=== PATIENT | female | born 1955 | race Caucasian/White ===

== ENCOUNTER → 2017-05-09 | Outpatient (CLI) | payer OTHER ==
--- NOTE | ~2017-05-09 | EKG ---
[address] [place] [address] ELECTROCARDIOGRAM REPORT Name: JASMINA OCHOA [id number]: 05/09/17 Attend Phys: Alex Gee MD Discharge: Date of : 59 Report #: [id number] THIS REPORT FOR: //name// [facility] Test Date: 2017-05-09 Test Time: 10:38:28 Pat Name: JASMINA OCHOA Department: Room: Gender: F [employer] Laminator: Anna MCKINNEY : 1955 Requested By: Alex Gee Order Number: [id number] MD: Noble Howard Measurements Intervals [place] Rate: 63 P: 36 MI: 145 QRS: 17 QRSD: 91 T: 47 QT: 398 QTc: 408 Interpretive Statements Sinus rhythm No significant abnormality No previous ECG available for comparison Electronically Signed On 05-10-2017 12:38:40 CDT by Noble Howard [email or web address] <ELECTRONICALLY SIGNED> By: Noble Howard MD, [facility] 05/10/17 1238 1038 1038 Noble Howard MD, FACC /EPI
== END ==
LOC: CV 09:58
DX: E78.00 Pure hypercholesterolemia, unspecified (principal)

== ENCOUNTER → 2020-07-13 | Outpatient (CLI) | payer OTHER | LOC: CAT 14:57 | PROVIDERS: ATTEND Internal Medicine Cardiovascular Disease | DX: Z13.6 Encounter for screening for cardiovascular disorders (principal); I25.10 Atherosclerotic heart disease of native coronary artery without angina pectoris; E78.00 Pure hypercholesterolemia, unspecified ==

== ENCOUNTER → 2020-07-19 | Outpatient (CLI) | payer BC | LOC: SJCVCIMAG 11:53 | PROVIDERS: ATTEND Internal Medicine Cardiovascular Disease | DX: I49.3 Ventricular premature depolarization (principal) ==

== ENCOUNTER → 2020-07-23 | Outpatient (CLI) | payer BC | LOC: LAB 12:28 | PROVIDERS: ATTEND Anesthesiology | DX: Z20.828 Contact with and (suspected) exposure to other viral communicable diseases (principal) ==

== ENCOUNTER → 2021-05-30 | Outpatient (CLI) | payer BC | LOC: RAD 11:21 | PROVIDERS: ATTEND Nurse Practitioner | DX: Q85.00 Neurofibromatosis, unspecified (principal); I10 Essential (primary) hypertension ==